=== PATIENT | female | born 1960 ===

== ENCOUNTER 2024-01-07 11:49 | Outpatient (REF) | payer SELFPAY ==
[2024-01-07 12:13] LABS: Basophils Absolute Auto 0.03 K/uL (0.00-0.30); Basophils Percent Auto 0.4 % (0.0-3.0); Eosinophils Absolute Auto 0.28 K/uL (0.00-0.50); Eosinophils Percent Auto 3.4 % (0.0-7.0); Hematocrit 42.5 % (33.0-51.0); Hemoglobin* 13.5 gm/dL (12.0-16.0); Immature Granulocytes Abs Auto 0.03 K/uL (0.00-0.30); Immature Granulocytes Pct Auto 0.4 %; Lymphocytes Absolute Auto 2.58 K/uL (0.90-2.90); Lymphocytes Percent Auto 31.3 % (20-44); Mean Corpuscular HGB Conc 32 gm/dL (32-36); Mean Corpuscular Hemoglobin 30 pg (26-34); Mean Corpuscular Volume 94 fL (80-100); Neutrophils Absolute Auto 4.75 K/uL (1.7-7.0); Neutrophils Percent Auto 57.5 % (42.0-72.0); Platelet Count* 299 K/uL (140-440); RDW Coefficient of Variation % 12.7 % (11.5-15.5); Red Blood Count 4.54 m/uL (4.00-5.20); White Blood Count* 8.25 K/uL (4.50-11.00)
[2024-01-07 12:23] LABS: Slide Review Reflex No
[2024-01-07 12:26] LABS: Hemoglobin A1C* 5.8 % (0-5.6)
[2024-01-07 12:27] LABS: Albumin* 4.4 g/dL (3.3-5.0)
[2024-01-07 12:28] LABS: Chloride* 104 mmol/L (96-114); Potassium* 5.2 mmol/L (3.6-5.1); Sodium* 140 mmol/L (135-149)
[2024-01-07 12:30] LABS: Anion Gap 5 mEq/L (7-15); Aspartate Amino Transferase* 31 U/L (12-35); Bilirubin Total* 0.4 mg/dL (0.1-1.5); Blood Urea Nitrogen* 17 mg/dL (7-30); Carbon Dioxide* 31 mmol/L (20-32); Cholesterol* 197 mg/dL (90-199); Creatinine* 0.7 mg/dL (0.5-1.5); Estimated Glomerular Filt Rate 98 ml/min; Total Protein* 7.9 g/dL (6.0-8.3)
[2024-01-07 12:31] LABS: Alanine Aminotransferase* 28 U/L (4-35); Alkaline Phosphatase* 139 U/L (40-150); Calcium* 9.1 mg/dL (8.4-10.6); Glucose* 108 mg/dL (60-115); HDL Cholesterol* 44 mg/dL (>=50); LDL Cholesterol Calculated 112 mg/dL (<100); Triglycerides* 207 mg/dL (40-149)
[2024-01-08 08:37] LABS: H pylori Ag Stool* Negative (Negative)
== END 2024-01-07 11:50 | disposition home or self-care (01) ==
LOC: LAB 11:49
PROVIDERS: PCP Family Medicine; Visit Provider Family Medicine
DX: R10.13 Epigastric pain (principal)
CPT/HCPCS: 36415; 80053; 80061; 83036; 85025; 87338